=== PATIENT | male | born 1950 | race Caucasian/White ===

== ENCOUNTER 2017-06-14 12:22 | Inpatient (IN) ==
[2017-06-14 13:34] LABS: MANUAL DIFF NEEDED? NO
[2017-06-14 13:46] LABS: BASO% 0.7 % (0.0-0.8); EOS# 0.07 X1000 (0.0-0.7); EOS% 0.7 % (0.0-10.0); HEMATOCRIT 45.5 % (42.0-52.0); HEMOGLOBIN 15.6 g/dL (14.0-18.0); IMM GRAN# 0.03 X1000 (0.0-0.04); IMM GRAN% 0.3 % (0.0-0.5); LYMPH# 2.52 X1000 (1.2-3.4); LYMPH% 23.7 % (20.5-51.1); MCH 30.9 PG (27-31); MCHC 34.3 g/dL (33-37); MCV 90.1 FL (81-99); MONO# 0.79 X1000 (0.11-0.59); MONO% 7.4 % (1.7-9.3); MPV 11.3 FL (7.4-10.4); NEUT% 67.2 % (42.2-75.2); PLT 328 X1000 (130-400); RBC 5.05 XMIL (4.7-6.1)
[2017-06-14 13:55] LABS: INR 1.03; PROTIME 10.8 Seconds (9.2-11.7); PTT 30.3 Seconds (22.0-36.0)
[2017-06-14 14:04] LABS: AGAP 15; ALBUMIN 4.2 g/dL (3.5-5.0); ALKALINE PHOSPHATASE 91 U/L (32-122); BUN 13 mg/dL (8-22); CHLORIDE 101 mmol/L (98-107); CK PROFILE 116 U/L (24-204); COSMO 282; GOT 15 U/L (10-34); GPT 13 U/L (10-44); POTASSIUM 3.6 mmol/L (3.5-5.1); SODIUM 140 mmol/L (136-145); TCO2 24 mmol/L (25-35); TOTAL BILIRUBIN 0.61 mg/dL (0.20-1.00); TOTAL PROTEIN 7.7 g/dL (6.3-8.3)
--- NOTE | 2017-06-14 14:48 | Diag Imaging Result Doc PS360 ---
CT HEAD W/O CONTRAST - 06/14/2017 INDICATION: AMS TECHNIQUE: A CT dose reduction protocol was used. COMPARISON: None FINDINGS: The ventricles and sulci are normal in size and contour. 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 No intracranial mass or hemorrhage. The skull is intact. The sinuses, mastoids, and middle ears are clear. IMPRESSION: No acute disease. Electronically signed by Jimmy Flores 06/14/2017 2:46 PM
--- NOTE | 2017-06-14 14:53 | Diag Imaging Result Doc PS360 ---
CHEST-PORTABLE - 06/14/2017 INDICATION: AMS TECHNIQUE: COMPARISON: None FINDINGS: The lungs are normally expanded and clear. Heart size and mediastinal contours are normal. No pneumothorax or pleural effusion. IMPRESSION: Negative exam. Electronically signed by Jimmy Flores 06/14/2017 2:50 PM
--- NOTE | 2017-06-14 15:21 | EKG Report ---
Test Performed on : 06/14/2017 12:36:28 PM Test Reason : DIZZINESS Blood Pressure : / mmHG Vent. Rate : 087 BPM Atrial Rate : 087 BPM P-R Int : 192 ms QRS Dur : 110 ms QT Int : 404 ms P-R-T Axes : 015 -68 049 degrees QTc Int : 486 ms Sinus rhythm. with marked sinus arrhythmia. with occasional premature ventricular complexes. Left anterior fascicular block Prolonged QT Abnormal ECG No previous ECGs available Unconfirmed Result
[2017-06-14] MEDS ORDERED: LABETALOL IV ONE (15:35)
--- NOTE | 2017-06-14 15:36 | ED EKG INTERP ---
This chart was entered by Yuko Paris Scribe, acting as scribe for Haven Joy MD. EKG Interpretation - EKG Time of EKG reading by physician:: 12:36 EKG Read and Signed by:: Haven Joy EKG Interpretation (*Must complete 3 of following elements*): Abnormal Rate: 87 Rhythm: sinus rhythm with marked sinus arrhythmia with occasional PVCs Comments: left anterior fascicular block; prolonged QT Attestation - Physician/ MICH Attestation Patient care was provided by Advanced Practice Provider:: No The physician spent face to face time with patient:: Yes Advanced Practice Provider documentation review:: Supervising physician onsite and consulted in the evaluation and care of this patient. The physician did have a face to face encounter with the patient. This chart was documented by the indicated scribe, (Yuko Paris Scribe) and accurately reflects the services I performed and decisions made by me, Haven Joy MD, as attested by the provider's signature.
[2017-06-14] MEDS ORDERED: NS 50 ML ONE (15:46)
[2017-06-14 16:56] LABS: URINE CULTURE NEEDED? NO; URINE MICRO REVIEW NEEDED? NO; URINE SOURCE CLEAN CATCH
[2017-06-14 17:00] LABS: BILIRUBIN URINE NEGATIVE (NEGATIVE); BLOOD URINE NEGATIVE (NEGATIVE); COLOR YELLOW; GLUCOSE URINE NEGATIVE (NEGATIVE); LEUKOCYTES URINE NEGATIVE (NEGATIVE); NITRITE URINE NEGATIVE (NEGATIVE); PROTEIN URINE NEGATIVE (NEGATIVE); SP GRAVITY URINE 1.006; TURBIDITY URINE CLEAR (CLEAR); UR EPITHELIAL CELLS <10 /HPF (<10); URINE BACTERIA NEGATIVE /HPF; URINE RBC <10 /HPF (<10); URINE WBC <10 /HPF (<10); UROBILINOGEN URINE NORMAL (NORMAL)
[2017-06-14 17:12] LABS: UR AMPHETAMINES QUAL NONE DETECTED (NONE DETECT); UR BARBITUATES QUAL NONE DETECTED (NONE DETECT); UR BENZODIAZEPIN QUAL NONE DETECTED (NONE DETECT); UR CANNABINOIDS QUAL NONE DETECTED (NONE DETECT); UR COCAINE QUAL NONE DETECTED (NONE DETECT); UR METHADONE QUAL NONE DETECTED (NONE DETECT); UR OPIATES QUAL NONE DETECTED (NONE DETECT); UR OXYCODONE QUAL NONE DETECTED (NONE DETECT); UR PCP QUAL NONE DETECTED (NONE DETECT)
--- NOTE | 2017-06-14 17:36 | ED EKG INTERP ---
This chart was entered by Yuko Paris Scribe, acting as scribe for Haven Joy MD. EKG Interpretation - EKG Time of EKG reading by physician:: 16:36 EKG Read and Signed by:: Haven Joy EKG Interpretation (*Must complete 3 of following elements*): Abnormal ( pulmonary disease pattern left anterior fascicular block Junctional ST depression, probably normal) Rate: 70 Rhythm: normal sinus rhythm Attestation - Physician/ MICH Attestation Patient care was provided by Advanced Practice Provider:: No The physician spent face to face time with patient:: Yes Advanced Practice Provider documentation review:: Supervising physician onsite and consulted in the evaluation and care of this patient. The physician did have a face to face encounter with the patient. This chart was documented by the indicated scribe, (Yuko Paris Scribe) and accurately reflects the services I performed and decisions made by me, Haven Joy MD, as attested by the provider's signature.
--- NOTE | 2017-06-14 22:22 | PROVIDER DOCUMENTATION ---
This chart was entered by Yuko Paris Scribe, acting as scribe for Jose Manuel Perales DO. HPI-Syncope/Dizziness - General Chief Complaint: Dizziness Stated Complaint: fall/ dizzy x6 months Time Seen by Provider: 06/14/17 14:30 Source: patient Allergies/Adverse Reactions: Patient Allergies Allergy/AdvReac Type Severity Reaction Status Date / Time No Known Allergies Allergy Verified 06/14/17 15:42 Home Medications: Home Medication List Medication Instructions Recorded Confirmed Last Taken Type NK [No Home Medications] 06/14/17 06/14/17 Unknown History - History of Present Illness-Syncope/Dizzy Nature of Presenting Problem: Patient is a 66 year old male who presents in the ED with complaints of dizziness. He states he had a sudden onset of dizziness while shopping in a store today, and states he was able to sit down before falling. He also states he has a history of frequent falls due to dizziness, but states he has not seen a physician in 15 years. He reports he has lost forty pounds in the last year, and reports he smokes one pack per day. He denies chest pain, dyspnea, palpitations, nausea/vomiting, and any other symptoms. Prior Episodes: reports: recent history Onset/Duration: reports: abrupt, just prior to arrival Timing: reports: improving Position/Activity at time of episode: reports: standing Symptoms prior to episode: reports: lightheaded (dizziness) Context: reports: felt faint, other (dizziness) Loss of Consciousness: no loss of consciousness Location of injury. (If syncope resulted in an injury.): reports: none Current Symptoms: reports: none/feels normal Similar symptoms previously: denies: previous diagnosis, tests, workup for same problem Recently Seen Here or By Another Healthcare Provider: No - Dizziness Severity in ED: reports: mild, moderate Dizziness Related Current/Associated Symptoms: reports: none/feels normal Any recent trauma/injury?: reports: none Modifying Factors: improves with: nothing Patient usually:: reports: walks without assistance Review of Systems - Adult - REVIEW OF SYSTEMS - ADULT Constitutional: reports: no symptoms reported Eyes: reports: no symptoms reported Ears, Nose, Mouth & Throat: reports: no symptoms reported Cardiovascular: reports: no symptoms reported. denies: chest pain, palpitations Respiratory: reports: no symptoms reported. denies: shortness of breath Gastrointestinal: reports: no symptoms reported. denies: nausea, vomiting Genitourinary: reports: no symptoms reported Musculoskeletal: reports: no symptoms reported Integumentary: reports: no symptoms reported Neurological: reports: see HPI, dizziness/vertigo Psychiatric: reports: no symptoms reported Endocrine: reports: no symptoms reported Hematologic/Lymphatic: reports: no symptoms reported Allergic/Immunologic: reports: no symptoms reported All Other Systems: Reviewed and Negative Past History - Adult - PAST MEDICAL HISTORY-ADULT Review of Records: reports: Nursing Assessment Review, Medications Reviewed Major Childhood Illnesses: reports: denies history Cardiovascular: reports: denies history Respiratory: reports: denies history Gastrointestinal: reports: denies history Obstetrical/Gynecological: reports: denies history Genitourinary: reports: denies history Musculoskeletal: reports: denies history Neurological: reports: denies history Endocrine/Immune: reports: denies history Other Conditions: reports: denies history - PRIOR SURGERIES/PROCEDURES Surgical/Procedure History: reports: appendectomy - IMMUNIZATION STATUS Childhood Immunizations: See Nurse Assessment Flu Vaccine: See Nurse Assessment - FAMILY HISTORY Family History: reviewed, not pertinent - SOCIAL HISTORY Smoking: cigarettes, less than 1 pack/day Substance Use: none/never Alcohol Use Frequency: never Living Situation: family Physical Exam-General - PHYSICAL EXAM-ADULT Initial Vital Signs Reviewed: Yes (hypertensive) - CONSTITUTIONAL General Appearance: alert, no apparent distress - EYES Eyes: PERRL/EOMI, pink conjunctivae - HEAD, EARS, NOSE, MOUTH & THROAT HENMT: normocephalic/atraumatic, moist mucous membranes - NECK Neck: non-tender, full range of motion, supple, normal inspection - RESPIRATORY Respiratory: chest non-tender, lungs clear, normal breath sounds, no pleuratic chest pain, no respiratory distress, no accessory muscle use - CARDIOVASCULAR Cardiovascular: normal peripheral pulses, no edema, no gallop, no JVD, no murmur , tachycardia - GASTROINTESTINAL (ABDOMEN) Abdominal Exam: non tender, soft, no organomegaly, no pulsatile mass - LYMPHATIC Lymphatic: no adenopathy - MUSCULOSKELETAL Back Exam: normal inspection, no CVA tenderness, no vertebral tenderness Extremity: normal range of motion, non-tender, normal gait, normal inspection, no pedal edema, no calf tenderness, normal capillary refill, pelvis stable - SKIN Integumentary: normal color, normal turgor, warm/dry - NEUROLOGIC Neurologic: grossly normal, no motor/sensory deficits - PSYCHIATRIC Psych/Mental Status: normal mood/affect, oriented x 3 Progress - PLAN OF CARE/RESULTS Progress/Plan/Lab Results: Vital Signs - 8 hr 06/14/17 15:18 06/14/17 15:45 06/14/17 15:55 Temperature Pulse Rate 99 H 108 H 96 H Respiratory Rate 14 20 18 Blood Pressure 215/140 210/132 204/108 O2 Sat by Pulse Oximetry 98 98 98 06/14/17 16:10 06/14/17 17:12 06/14/17 19:30 Temperature Pulse Rate 86 80 91 H Respiratory Rate 20 20 17 Blood Pressure 168/100 183/88 174/104 O2 Sat by Pulse Oximetry 98 100 95 06/14/17 20:28 Temperature 98.7 F Pulse Rate 89 Respiratory Rate 12 Blood Pressure 171/86 O2 Sat by Pulse Oximetry 96 Laboratory Results - last 24 hr 06/14/17 06/14/17 06/14/17 12:37 12:37 12:37 WBC 10.63 RBC 5.05 Hgb 15.6 Hct 45.5 MCV 90.1 MCH 30.9 MCHC 34.3 RDW Std Deviation 13.6 Plt Count 328 MPV 11.3 H Immature Gran % (Auto) 0.3 Neut % (Auto) 67.2 Lymph % (Auto) 23.7 [place] % (Auto) 7.4 Eos % (Auto) 0.7 Baso % (Auto) 0.7 Immature Gran # (Auto) 0.03 Neut # (Auto) 7.15 H Lymph # (Auto) 2.52 [place] # (Auto) 0.79 H Eos # (Auto) 0.07 Baso # (Auto) 0.07 PT INR PTT (Actin FS) D-Dimer 0.51 H Sodium 140 Potassium 3.6 Chloride 101 Carbon Dioxide 24 L Anion Gap 15 BUN 13 Creatinine 1.1 Estimated GFR/1.73 m2 > 60 BUN/Creatinine Ratio 12 Glucose 139 H POC Glucose Calculated Osmolality 282 Calcium 9.0 Magnesium 2.0 Total Bilirubin 0.61 AST 15 ALT 13 Alkaline Phosphatase 91 Creatine Kinase 116 Troponin T [id number] Pept Total Protein 7.7 Albumin 4.2 Globulin 3.5 Albumin/Globulin Ratio 1.2 Urine Source Urine Color Urine Turbidity Urine pH Ur Specific [place] Urine Protein Ur Glucose (Stick) Ur Ketones (Stick) Urine Blood Urine Nitrite Urine Bilirubin Urobilinogen Dipstick Urine Leukocytes Urine WBC (Auto) Urine RBC (Auto) U Epithel Cells (Auto) Urine Bacteria (Auto) Urine Opiates Screen Ur Oxycodone Screen Ur Methadone, Qual Ur Barbiturates Screen Ur Phencyclidine Scrn Ur Amphetamines Screen U Benzodiazepines Scrn Urine Cocaine Screen U Cannabinoids Screen 06/14/17 06/14/17 06/14/17 12:37 12:37 12:37 WBC RBC Hgb Hct MCV MCH MCHC RDW Std Deviation Plt Count MPV Immature Gran % (Auto) Neut % (Auto) Lymph % (Auto) [place] % (Auto) Eos % (Auto) Baso % (Auto) Immature Gran # (Auto) Neut # (Auto) Lymph # (Auto) [place] # (Auto) Eos # (Auto) Baso # (Auto) PT 10.8 INR 1.03 PTT (Actin FS) 30.3 D-Dimer Sodium Potassium Chloride Carbon Dioxide Anion Gap BUN Creatinine Estimated GFR/1.73 m2 BUN/Creatinine Ratio Glucose POC Glucose Calculated Osmolality Calcium Magnesium Total Bilirubin AST ALT Alkaline Phosphatase Creatine Kinase Troponin T < 0.010 [id number]-[id number] Pept 663 H Total Protein Albumin Globulin Albumin/Globulin Ratio Urine Source Urine Color Urine Turbidity Urine pH Ur Specific [place] Urine Protein Ur Glucose (Stick) Ur Ketones (Stick) Urine Blood Urine Nitrite Urine Bilirubin Urobilinogen Dipstick Urine Leukocytes Urine WBC (Auto) Urine RBC (Auto) U Epithel Cells (Auto) Urine Bacteria (Auto) Urine Opiates Screen Ur Oxycodone Screen Ur Methadone, Qual Ur Barbiturates Screen Ur Phencyclidine Scrn Ur Amphetamines Screen U Benzodiazepines Scrn Urine Cocaine Screen U Cannabinoids Screen 06/14/17 06/14/17 06/14/17 13:15 16:43 16:43 WBC RBC Hgb Hct MCV MCH MCHC RDW Std Deviation Plt Count MPV Immature Gran % (Auto) Neut % (Auto) Lymph % (Auto) [place] % (Auto) Eos % (Auto) Baso % (Auto) Immature Gran # (Auto) Neut # (Auto) Lymph # (Auto) [place] # (Auto) Eos # (Auto) Baso # (Auto) PT INR PTT (Actin FS) D-Dimer Sodium Potassium Chloride Carbon Dioxide Anion Gap BUN Creatinine Estimated GFR/1.73 m2 BUN/Creatinine Ratio Glucose POC Glucose 135 H Calculated Osmolality Calcium Magnesium Total Bilirubin AST ALT Alkaline Phosphatase Creatine Kinase Troponin T [id number] Pept Total Protein Albumin Globulin Albumin/Globulin Ratio Urine Source CLEAN CATCH Urine Color YELLOW Urine Turbidity CLEAR Urine pH 7.0 Ur Specific [place] 1.006 Urine Protein NEGATIVE Ur Glucose (Stick) NEGATIVE Ur Ketones (Stick) 10 A Urine Blood NEGATIVE Urine Nitrite NEGATIVE Urine Bilirubin NEGATIVE Urobilinogen Dipstick NORMAL Urine Leukocytes NEGATIVE Urine WBC (Auto) <10 Urine RBC (Auto) <10 U Epithel Cells (Auto) <10 Urine Bacteria (Auto) NEGATIVE Urine Opiates Screen NONE DETECTED Ur Oxycodone Screen NONE DETECTED Ur Methadone, Qual NONE DETECTED Ur Barbiturates Screen NONE DETECTED Ur Phencyclidine Scrn NONE DETECTED Ur Amphetamines Screen NONE DETECTED U Benzodiazepines Scrn NONE DETECTED Urine Cocaine Screen NONE DETECTED U Cannabinoids Screen NONE DETECTED Orders Category Date Time Status Admit - [facility] Routine AdmDCTranf 06/14/17 22:05 Ordered Neurological Check q4h Care 06/14/17 22:05 Active Vital Signs Order Q 4-HR ASSESS Care 06/14/17 22:05 Active Z-Document. for Tele Applied ORDERED Care 06/14/17 22:05 Active Heart Healthy Diet Diet 06/14/17 17:03 Active CHEST-PORTABLE [RAD] Stat Exams 06/14/17 14:[address] HEAD W/O CONTRAST [CT] Stat Exams 06/14/17 14:18 Completed CBC WITH ELECTRONIC DIFF [HEME] Stat Lab 06/14/17 12:37 Completed CK PROFILE [SP CHEM] Stat Lab 06/14/17 12:37 Completed COMPREHENSIVE METABOLIC PANEL [CHEM] Stat Lab 06/14/17 12:37 Completed D-DIMER [CHEM] Stat Lab 06/14/17 12:37 Completed MAGNESIUM [CHEM] Stat Lab 06/14/17 12:37 Completed PRO B-NATRIURETIC PEPTIDE Stat Lab 06/14/17 12:37 Completed PROTIME WITH INR [COAG] Stat Lab 06/14/17 12:37 Completed PTT [COAG] Stat Lab 06/14/17 12:37 Completed TROPONIN T Stat Lab 06/14/17 12:37 Completed UA NIMS W/REFLEX CULT [URINALYSIS] Stat Lab 06/14/17 16:43 Completed UDS [URINE DRUG SCREEN] Stat Lab 06/14/17 16:43 Completed 0.9% Sodium Chloride Inj [Ns] 50 ml Med 06/14/17 15:46 Discontinued .ROUTE As Directed Labetalol Med 06/14/17 15:35 Discontinued 20 mg IV NOW ONE Oxygen Device Routine Oth 06/14/17 22:05 Active Telemetry [OM.EQ] Routine Oth 06/14/17 22:05 Active EKG [EKG] Stat Ther 06/14/17 12:36 Draft Transfer/Admit Order [TRANSFER] Routine Transfer 06/14/17 19:58 Completed Spoke with hospitalist and patient was accepted for admission Result Diagrams: 06/14/17 12:37 06/14/17 12:37 Departure - Departure Date of Disposition Decision: 06/14/17 Time of Disposition Decision: 22:18 DIAGNOSIS: Hypertensive urgency Disposition: ADMITTED INPATIENT 09 Certified Medical Emergency: Emergent Condition: Stable - Critical Care Note This patient required my direct & personal management of CC.: No Attestation - Physician/ MICH Attestation Patient care was provided by Advanced Practice Provider:: No The physician spent face to face time with patient:: Yes Advanced Practice Provider documentation review:: Supervising physician onsite and consulted in the evaluation and care of this patient. The physician did have a face to face encounter with the patient. This chart was documented by the indicated scribe, (Yuko Paris Scribe) and accurately reflects the services I performed and decisions made by me, Jose Manuel Perales DO, as attested by the provider's signature.
[2017-06-14] MEDS ORDERED: TYLENOL PO PRN (23:04)
[2017-06-14] MEDS: LOVENOX SUBQ SCH (23:58)
[2017-06-15] MEDS ORDERED: NORVASC PO ONE (00:26)
--- NOTE | 2017-06-15 05:25 | EKG Report ---
Test Performed on : 06/14/2017 4:36:09 PM Test Reason : No Order in [employer] Blood Pressure : / mmHG Vent. Rate : 070 BPM Atrial Rate : 070 BPM P-R Int : 194 ms QRS Dur : 096 ms QT Int : 432 ms P-R-T Axes : 000 -67 042 degrees QTc Int : 466 ms Normal sinus rhythm. Pulmonary disease pattern Left anterior fascicular block Junctional ST depression, probably normal Abnormal ECG When compared with ECG of 14-JUN-2017 12:36, (Unconfirmed) premature ventricular complexes. are no longer present Unconfirmed Result
[2017-06-15 05:38] LABS: MANUAL DIFF NEEDED? NO
[2017-06-15 05:47] LABS: BASO% 0.7 % (0.0-0.8); EOS# 0.25 X1000 (0.0-0.7); EOS% 2.1 % (0.0-10.0); HEMATOCRIT 41.4 % (42.0-52.0); HEMOGLOBIN 14.3 g/dL (14.0-18.0); IMM GRAN# 0.03 X1000 (0.0-0.04); IMM GRAN% 0.3 % (0.0-0.5); LYMPH# 3.09 X1000 (1.2-3.4); LYMPH% 26.3 % (20.5-51.1); MCH 31.5 PG (27-31); MCHC 34.5 g/dL (33-37); MCV 91.2 FL (81-99); MONO# 1.45 X1000 (0.11-0.59); MONO% 12.4 % (1.7-9.3); NEUT% 58.2 % (42.2-75.2); PLT 303 X1000 (130-400); RBC 4.54 XMIL (4.7-6.1)
[2017-06-15 06:11] LABS: HEMOGLOBIN A1C 6.6 % (4.8-6.0)
[2017-06-15 06:15] LABS: AGAP 13; BUN 17 mg/dL (8-22); CALCIUM 9.1 mg/dL (8.8-10.2); CHLORIDE 104 mmol/L (98-107); COSMO 288; MAGNESIUM 2.2 mg/dL (1.5-2.7); POTASSIUM 3.5 mmol/L (3.5-5.1); SODIUM 143 mmol/L (136-145); TCO2 26 mmol/L (25-35)
--- NOTE | 2017-06-15 06:26 | EKG Report ---
Test Performed on : 06/15/2017 05:58:24 AM Test Reason : Near Syncope Blood Pressure : / mmHG Vent. Rate : 063 BPM Atrial Rate : 063 BPM P-R Int : 208 ms QRS Dur : 114 ms QT Int : 458 ms P-R-T Axes : 047 -64 033 degrees QTc Int : 468 ms Sinus rhythm. with occasional premature ventricular complexes. Left anterior fascicular block Abnormal ECG When compared with ECG of 14-JUN-2017 16:36, (Unconfirmed) premature ventricular complexes. are now present ST no longer depressed in Anterior leads Confirmed by Hema Vyas MD ([id number]) on 06/17/2017 1:21:15 PM
--- NOTE | 2017-06-15 10:00 | HISTORY AND PHYSICAL ---
TIME SEEN: 2030 hours. CHIEF COMPLAINT: Near syncope. HISTORY OF PRESENT ILLNESS: Mr. Chase is a 66-year-old, male, who presented to the ER today at 1225 hours after experiencing a near syncopal episode just prior to arrival. The patient states that he was at the grocery store and became dizzy and almost passed out. He states that over the past 6 months he has had several syncopal episodes, for which he became dizzy, passed out and has even fallen and hit his head and injured himself previously. The patient reports that he did not present to a doctor or the ER for evaluation with his previous episodes. He denies any previous known history of CVA, seizures or cardiac problems. The patient denies any known medical problems. He reports that he has not seen a doctor in 15 years. He denies any headache, chest pain, palpitations or shortness of breath. He does report that for several years now he has had increased problems with some sensory loss and numbness in his bilateral extremities. He also states that he has had some numbness in his face as well, although denied this worsening recently or today with this episode. He reports that recently he had some pain in his back that was associated with a rash, although this has since subsided, although he states the pain is still there. The patient reports that he thought he had shingles. He had been taking some over-the- counter aspirin up to 2-3 tablets a day as needed for pain. He also reports that he frequently has problems with constipation and does occasionally use [id number] mineral oil and milk of magnesia. He stated that his last bowel movement was this morning; the one prior to this was yesterday. He denies any hematochezia or melena. He does report some rectal pain over the past 2- 3 months. He did report that he does have a previous history of having hemorrhoids as well, although upon examination in the ER the patient declined having a rectal exam performed at this time. Upon evaluation in the ER, the patient's CT of the head was negative for any acute intracranial abnormality. There was mention of some chronic microvascular disease, as well as an old lacunar infarct in the left internal capsule. His chest x-ray was negative. EKG showed sinus rhythm with a sinus arrhythmia and occasional PVCs. Cardiac enzymes are negative at this time. He did have elevated blood pressure upon arrival with his blood pressure reaching 215/140. At one point in the ER he was given 20 mg of labetalol which did improve this. At this time the patient will be admitted for further treatment and evaluation of his syncope. REVIEW OF SYSTEMS: A 12 point review of systems was conducted with the patient. All were negative, except for pertinent positives mentioned in the above HPI. PAST MEDICAL HISTORY: The patient denies any known past medical problems. PAST SURGICAL HISTORY: Appendectomy. SOCIAL HISTORY: The patient is a current half pack per day smoker. He states that over the past 10 years that he has reduced his daily uses down from 2 packs per day to this, although has smoked since age 16. He also did have a period from approximately 10 years in his 30s and 40s for which he used alcohol daily, although he denies any current alcohol use. He denies any current illicit drug use, although he did report in the past he has abused marijuana and cocaine. 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 FAMILY MEDICAL HISTORY: The patient states that his father was a drinker and a smoker. Other than this, he does not know his medical history. He reports that his mother had a history of metastatic breast cancer and at age 67. He reports that he has 3 siblings, although does not know their medical history either. ALLERGIES: Patient reports no known allergies. HOME MEDICATIONS: Patient denies any prescription medications. DIAGNOSTIC DATA/LABORATORY RESULTS: White blood cell count 10.63, hemoglobin 15.6, hematocrit 45.5, platelet count is 328. PT 10.8, INR 1.03, PTT is 30.3, D-dimer 0.51. Sodium 140, potassium 3.6, chloride 101, bicarbonate 24, BUN 13, creatinine 1.1, glucose 139, calcium 9, magnesium 2. Liver function tests are within normal limits. CK 116. Troponin less than 0.01. ProBNP is 663. Urinalysis was positive for ketones, but was otherwise within normal limits. Urine drug screen was negative. EKG showed sinus rhythm with a sinus arrhythmia and occasional PVCs with a prolonged QT at a rate of 87 with a QTc of 486. CT of the head noncontrast showed some scattered mild subcortical white matter hypodensities compatible with chronic microvascular disease, as well as an old lacunar infarct in the left internal capsule, although no intracranial mass or hemorrhage. This is per Radiology. Chest x-ray shows no acute disease. This is per Radiology. PHYSICAL EXAMINATION: VITAL SIGNS: Temperature 98.7 degrees, heart rate 89, respirations 12, blood pressure 171/86, oxygen saturation is 96% on room air. GENERAL: Mr. Chase is a pleasant, 66-year-old male, who is resting comfortably on the ER stretcher. He was in no acute distress. He was awake, alert and able to answer all questions appropriately. HEENT: Head is atraumatic, normocephalic. Pupils are equal, round, reactive to light, 3 mm bilaterally and brisk. EOMS were intact. Oral mucosa is moist. Oropharynx is clear. NECK: Supple. Trachea midline. CARDIOVASCULAR: Patient has normal S1, S2. No murmurs, gallops, rubs appreciated with a regular rate, although irregular rhythm. PULMONARY: Patient has symmetrical chest expansion bilaterally. Lung sounds are clear to auscultation bilateral full marie. ABDOMEN: Soft, nontender, nondistended. Bowel sounds were present in all 4 quadrants and normoactive. EXTREMITIES: No cyanosis, clubbing, or edema noted. Pulse, motor and sensory were intact in all extremities. Pedal pulses were 2+ bilaterally. INTEGUMENTARY: The patient's skin is pink, warm, dry and intact. No lesions or sores noted. NEUROLOGICAL: Patient is alert and oriented x4. Cranial nerves 2-12 are grossly intact. No facial droop noted. Patient has equal hand grasps and muscle strength bilaterally. No arm drift noted as well. ASSESSMENT AND PLAN: 1. Near syncope. For further evaluation of this, we have ordered for the patient to have an echocardiogram in the morning, as well as repeat cardiac enzymes and repeat electrocardiogram. We have placed a cardiology consult as well. The patient is not having any acute neurological deficits at this time, although we will continue to monitor this closely with every 4 hour neuro checks. We will continue to rule him out for possible neurological complications given his symptoms, as well as mention of old lacunar infarct on his computed tomography. We have also placed orders for lipid profile to be performed in the morning and we will continue to follow. 2. Hyperglycemia. The patient has no previous history of diabetes. We will continue to monitor this. We have placed an order for hemoglobin A1c. We will continue to follow. 3. Hypertension. The patient does not previously take any medications for this. We will go ahead and place him on Norvasc 5 mg oral daily. We will continue to monitor. 4. Nicotine dependence. We will continue to employment counselor the patient during his inpatient status and upon discharge the importance of smoking cessation. 5. Deep vein thrombosis prophylaxis. Will place him on Lovenox 40 mg subcutaneously every 24 hours. 6. Elevate D-dimer. At this time, except for elevated blood pressure, the patient's vital signs are within normal limits. He denies any chest pain or shortness of breath and according to Wells criteria for pulmonary embolism and deep vein thrombosis, there is a low probability that the patient has either of these. The patient will be placed on the medical floor with telemetry. Vital signs q. 4 hours. He will be on a heart healthy diet, although n.p.o. after midnight for a lipid profile in the morning. Further orders and recommendations pending hospital course, diagnostic studies, and physician evaluation. Dictated by SILVINA Cherry for Tonio Bradshaw MD cc: Tonio Bradshaw MD I have seen and examined patient. I have provided face to face evaluation. I have also reviewed patient labs, EKG and imagine studies. Patient presents with Syncopal episode. EKG abnormal. Will pursue cardiac work up. Patient has has severe uncontrolled HTN. Will continue with the plan outline above. VISHAL MANUEL
--- NOTE | 2017-06-15 12:20 | CONSULTATION ---
DATE OF CONSULTATION: 06/15/2017 INDICATION: Syncope. HISTORY OF PRESENT ILLNESS: Mr. Chase is a 66-year-old white male with a history of multiple near syncopal episodes happening relatively frequently over the last 6 months with the most recent episode occurring yesterday. This occurred in the grocery store. He became very dizzy and apparently almost passed out and had to go to the ground. Around 2 weeks ago he thinks he had an episode where he actually did pass out and suffered a lot of abrasions to his shoulder area. He has no preceding chest pain or poor heart racing with these episodes. He has no medical history that he is aware of although he reports no contact with the medical community for some time now. He has a history of smoking and has done so for many years. In addition, he had a history of illicit drug use in the form of marijuana and cocaine in the past. No current primary care provider. PAST HISTORY: None by virtue of lack of contact with the medical community. SOCIAL HISTORY: A smoker as detailed above. No current alcohol use. 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 Previous illicit drug use as detailed. FAMILY HISTORY: Father was a drinker and a smoker, otherwise no known medical history that he is aware of. Mother had a history of metastatic breast cancer and at 67. He is not aware of any medical history in his 3 siblings. REVIEW OF SYSTEMS: A 10-system review of systems is negative except for those things mentioned in HPI. PHYSICAL EXAMINATION: This hospitalization he has been afebrile. His heart rates have been anywhere from the 60s to 90s. His blood pressure is 152/55. His presenting blood pressure was 173/100 and then went into the 200s. Generally he is in no acute distress. HEENT: Oropharynx is moist. Poor dentition. Eye examination shows pink conjunctivae and white sclerae. Neck examination shows no obvious thyromegaly or thyroid tenderness. Cardiovascular: He is in a regular rate and rhythm. He has no obvious murmurs. He has no S3. He has no lower extremity edema. He does have a left-sided carotid bruit with no obvious bruit heard on the right side. Chest: Clear bilaterally. He has no increased work of breathing. Abdomen: Soft, nontender, nondistended. He has no obvious organomegaly. Skin Exam: Warm and dry throughout any rashes. Neurological: He is moving all extremities well. Cranial nerves 2-12 are intact without any sensation deficits. Psychiatric: He is alert, oriented, pleasant. He has normal mood and affect. PERTINENT DATA: CT of the head without contrast showed no acute findings. His chest x-ray was unremarkable. He had multiple EKGs, initial one being at 12:36 yesterday. This showed sinus rhythm with PVCs and what appears to be PACs. His subsequent EKG occurring yesterday at 16:36 shows sinus rhythm. Final EKG occurring today at 5:58 shows sinus rhythm with PVC. Laboratory data: White count of 11.7, his hematocrit is 41, his platelet count is 303,000. Sodium is 143, potassium 3.5, BUN 17, creatinine 1.2, magnesium level is 2.2. His cardiac enzymes are negative. His proBNP is 63. His LDL was 118, HDL 27. ASSESSMENT: Syncopal episode. PLAN: He has a severe right-sided carotid lesion that is possibly occluded with a 60-79% lesion on the left. We will obtain CT angiograms of the head and neck to further evaluate. I will evaluate with myocardial perfusion imaging as well. His echo is pending. His laboratory data has been unremarkable for the time being for any acute cause of his episode. He will need continued heart rate monitoring as his telemetry currently shows multiple PACs. No significant AV block has been undiagnosed. Possible Wenckebach has been seen, but no higher degree of AV block. We will continue to follow for now. cc: Samir Morillo MD
--- NOTE | 2017-06-15 12:50 | Diag Imaging Result Doc PS360 ---
EXAM: CT ANGIOGRAM/HEAD AND NECK HISTORY: syncope, severe bilat carotid disease TECHNIQUE: Dose reduction protocol 1. CT angiogram head with contrast. MIP images obtained. 2. CT angiogram neck with contrast. MIP images obtained. COMPARISON: None. FINDINGS: CT angiogram head: There is normal flow within each middle cerebral artery and each anterior cerebral artery. No focal stenosis. No aneurysm. Normal flow in each posterior cerebral artery. No stenosis or aneurysm. CT angiogram neck: There is normal flow within each common carotid artery. There is intimal thickening in each distal common carotid artery resulting in mild narrowing of less than 50%. No calcified plaque. Noncalcified plaque within the left bulb resulting in narrowing of approximately 50%. No other abnormality to the left internal carotid artery. There is complete occlusion to the right internal carotid artery at the bulb. Flow is present within each vertebral artery. The right vertebral artery is larger than the left. IMPRESSION: 1. No occlusion, prominent stenosis, or aneurysm in the [place]low[place] dee-ni' of Drew 2. Complete occlusion to the right internal carotid artery. Electronically signed by Hilton Hull 06/15/2017 12:47 PM
[2017-06-15] MEDS: ASPIRIN PO SCH (16:45)
[2017-06-15] MEDS: NS 1,000 ML IV SCH (16:46)
[2017-06-15] MEDS: PRINIVIL PO SCH (16:46)
[2017-06-15] MEDS: HUMULIN R SUBQ SCH (20:53)
[2017-06-15] MEDS: LOVENOX SUBQ SCH ×2 (20:54→23:18)
[2017-06-15] MEDS: LIPITOR PO SCH (20:54)
--- NOTE | 2017-06-15 21:46 | PROGRESS NOTE ---
DATE: 06/15/2017 SUBJECTIVE: Today Mr. Chase referred to be doing a little better. He has not had anymore of the dizziness or blackout spells. Mr. Chase refers to have been having these episodes of instantly blacking out every now and then for a while. OBJECTIVE: Vital signs: Blood pressure is 173/122, pulse of 120, respiration is 18, temperature is 98.2 degrees. General examination: Mr. Chase is a 66-year-old, male. He is in bed. He is not in any distress. Mucosa is slightly dry. Anicteric. Acyanotic. Neck: Supple. Chest: Good air entry bilaterally. No crepitations. No rhonchi. Cardiovascular: Regular rate and rhythm. There are no murmurs, no rubs, no gallops. There are occasional extra systolic beats. Abdomen: Soft. Extremities: No pedal edema. Central Nervous System: Patient is awake, alert and oriented. There is no focal neurological deficit. LABORATORY DATA: Has been reviewed. WBC is 11.74, hemoglobin is 14.3, platelet count is 303,000. Chemistry is also reviewed and completely unremarkable. A1c is 6.6. Lipids have also been review. HDL is 27 which is ridiculously low. ASSESSMENT: 1. Recurrent syncopal episodes. I think patient probably has underlying cardiac arrhythmias or a cardiac pathology that predisposes him to that. His EKG shows PVCs. We will have to continue monitoring his telemonitor to see if there is any paroxysmal fast rhythm that gives him syncope. 2. Severe uncontrolled hypertension. Patient probably has already developed hypertensive cardiomyopathy. We would continue with the current blood pressure medication for control. 3. Diabetes mellitus. A1c is 6.6. The patient complained of some numbness in his lower extremities for some time. I think he has probably been diabetic for a while and has just not been treated. We will some start him on a sliding scale at least for now. Hopefully at the time of discharge we can transition this to some oral medications. 4. Tobacco abuse. Patient has been counseled. 5. Dyslipidemia. We are going to start the patient on atorvastatin. 6. Bilateral carotid artery disease. The patient has completely occluded right internal carotid artery, the left has about 50% and also narrowing. His [place] of Drew was unremarkable. I think patient is probably very vasculopathic. We will start him on aspirin 325 daily, statin medications and go from there. In general, I think Mr. Chase is relatively stable. We are going to get better blood pressure control. He looks dry so we will hydrate him with normal saline at 85 mL/h. We will start him on aspirin, statin and blood pressure control. He has done a stress test. We are pending the report and then go from there. We will also continue monitoring his heart under the environmental monitoring technician and if it is unremarkable I think he will need probably a 30 day heart monitoring to make sure that we catch any paroxysmal arrhythmia that comes. cc: Tonio Bradshaw MD MTDD
[2017-06-16] MEDS: NS 1,000 ML IV SCH ×2 (03:58→18:35)
[2017-06-16 05:28] LABS: MANUAL DIFF NEEDED? NO
[2017-06-16 05:37] LABS: BASO% 0.8 % (0.0-0.8); EOS% 3.3 % (0.0-10.0); HEMATOCRIT 39.7 % (42.0-52.0); HEMOGLOBIN 13.6 g/dL (14.0-18.0); LYMPH% 26.2 % (20.5-51.1); MCH 31.1 PG (27-31); MCHC 34.3 g/dL (33-37); MCV 90.8 FL (81-99); MONO# 0.95 X1000 (0.11-0.59); MONO% 10.4 % (1.7-9.3); MPV 11.5 FL (7.4-10.4); NEUT% 59.3 % (42.2-75.2); PLT 284 X1000 (130-400); RBC 4.37 XMIL (4.7-6.1)
[2017-06-16] MEDS: HUMULIN R SUBQ SCH ×4 (06:06→20:56)
[2017-06-16 06:07] LABS: AGAP 10; BUN 14 mg/dL (8-22); CALCIUM 8.8 mg/dL (8.8-10.2); CHLORIDE 107 mmol/L (98-107); COSMO 286; POTASSIUM 3.5 mmol/L (3.5-5.1); SODIUM 143 mmol/L (136-145); TCO2 26 mmol/L (25-35)
[2017-06-16] MEDS: PRINIVIL PO SCH (08:26)
[2017-06-16] MEDS: ASPIRIN PO SCH (08:26)
[2017-06-16] MEDS ORDERED: NORVASC PO SCH (09:00)
--- NOTE | 2017-06-16 12:42 | ECHO REPORT ---
ORDER DATE: 06/15/2017 MEASUREMENTS: Left ventricular end-diastolic diameter 4.6 and systolic diameter 3.6. Septal thickness 1.9, posterior wall thickness 1.4. Left atrium 4.0, aortic root 3.4. SUMMARY: 1. Fair quality study. 2. Minimal sclerosis of trileaflet aortic valve demonstrated with normal aortic valve opening evident. Peak gradient across the aortic valve is less than 5 mmHg. Mitral, tricuspid and pulmonic valves are without structural abnormality with mild mitral regurgitation and mild tricuspid regurgitation. The estimated systolic PA pressure by Doppler is 15-20 mmHg. The aortic root is normal in size. 3. Normal left ventricular chamber size with moderate concentric left hypertrophy is demonstrated. Estimated left ventricular ejection fraction appears to be approximately 50%. No regional wall motion abnormalities are evident. Left atrium is borderline enlarged. Right atrium and right ventricle are normal in size with normal right ventricular systolic function. 4. No pericardial effusion. 5. Appearance of inferior vena cava suggests normal central venous pressure. cc: Kushal Saeed MD
[2017-06-16] MEDS: HYGROTON PO SCH (14:18)
[2017-06-16] MEDS: LOVENOX SUBQ SCH (20:58)
[2017-06-16] MEDS: LIPITOR PO SCH (20:58)
[2017-06-16] MEDS ORDERED: HYGROTON PO ONE (23:01)
--- NOTE | 2017-06-17 04:20 | PROGRESS NOTE ---
DATE: 06/16/2017 SUBJECTIVE: Today, Mr. Chaes referred to be doing a little better. He has been able to walk around the floor and did not feel any dizziness. OBJECTIVE: Vital Signs: Blood pressure is now 154/100, pulse of 89, respirations are 16, temperature 97.7 degrees. General Examination: Mr. Chase is a 66-year-old, male. He was in bed. HEENT: Mucosa is slightly dry. Anicteric and acyanotic. Neck: Supple. Chest: Clear. Cardiovascular: Regular rate and rhythm. There are occasional extrasystolic beats. No murmurs, no rubs. Abdomen: Soft. Extremities: No pedal edema. Distal pulses are present. BELT TURNER: Patient is awake and alert. There is no focal neurological deficit. Laboratory Data: WBC is 9.17, hemoglobin is 13.6, platelet count of 284,000. Chemistry is also reviewed and is unremarkable. An echocardiogram was done which shows an ejection fraction of 50%. There is no regional wall abnormality. There is moderate concentric left hypertrophic cardiomyopathy. Head and neck CT scan, which was a CTA which was done, there is a complete occlusion to the right internal carotid. ASSESSMENT: 1. Recurrent syncopal episode. Patient will continue on the child life therapist. He does have occasional premature ventricular contractions and patient is being seen by cardiology. 2. Severe uncontrolled hypertension. Blood pressure is getting better controlled. He has been started on 3 different types of antihypertensive medications. We will continue for now. 3. Tobacco abuse. Patient has been counseled. 4. Diabetes mellitus. We will start the patient on metformin. 5. Dyslipidemia. The patient is already on atorvastatin. 6. Bilateral carotid artery disease with a completely occluded right internal carotid artery. The left is about 50% narrowed. He will continue with aspirin and a statin. 7. 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 We will continue to strive for better blood pressure control. PLAN: In general, I think Mr. Chase is doing better. We will continue with the hydration, continue targeting better blood pressure control. There is a plan from a cardiology standpoint for him to get a stress test tomorrow. cc: Tonio Bradshaw MD
[2017-06-17] MEDS: HUMULIN R SUBQ SCH ×4 (06:31→20:54)
[2017-06-17] MEDS: NS 1,000 ML IV SCH (06:32)
[2017-06-17] MEDS: PRINIVIL PO SCH (09:40)
[2017-06-17] MEDS: HYGROTON PO SCH (09:41)
[2017-06-17] MEDS: ASPIRIN PO SCH (09:41)
--- NOTE | 2017-06-17 09:43 | Carotid Study ---
DATE: 06/15/2017 PROCEDURE: Carotid duplex imaging. REFERRING PHYSICIAN: Dr. Bradshaw INTERPRETING PHYSICIAN: Dr. Newman TECH: Magen INDICATIONS: Syncope. OBSERVED DATA RIGHT LEFT Brachial Blood Pressure Carotid Pulse Bruits: Carotid/Sub DIAGRAM OF ULTRASOUND IMAGING R L RIGHT INT EXT INT EXT LEFT Sabas (cm/s) Sabas (cm/s) Subclavian 93/1 Subclavian 164/0 CCA Proximal 98/7 CCA Proximal 140/47 CCA Distal 108/9 CCA Distal 199/47 Bulb 67/7 Bulb 227/47 ICA Proximal 17/1 ICA Proximal 227/59 ICA Mid 42/0 ICA Mid 166/53 ICA Distal 47/0 ICA Distal 113/29 ECA 157/23 ECA 177/31 Vertebral 167/53 A Vertebral 82/21 A ICA/CCA Ratio 0.44 ICA/CCA Ratio 1.44 % Stenosis Likely occluded versus 99% % Stenosis 60 to 79 FINDINGS: Likely occluded right internal carotid artery on this study. The left side has some intimal thickening in the proximal common carotid artery and has stenosis of 60% to 79%. There is also an incidentally found thyroid nodule on the right. Both vertebral arteries are antegrade flow. PHYSICIAN INTERPRETATION: Likely complete occlusion of the right internal carotid artery with severe stenosis on the left. Given these findings, I would recommend a CT angiography to confirm stenosis given the questionable occluded versus 99% on the right. There is an incidentally noted right thyroid nodule which I would recommend getting a dedicated thyroid ultrasound on. cc: MD Faith Whyte PA
[2017-06-17] MEDS: COREG PO SCH ×3 (09:47→20:54)
[2017-06-17] MEDS ORDERED: GLUCOPHAGE PO SCH (17:00)
--- NOTE | 2017-06-17 17:47 | PROGRESS NOTE ---
DATE: 06/17/2017 SUBJECTIVE: Today Mr. Chase referred to be doing fine. He referred that he got slightly dizzy when he got up early this morning to take a shower but he has not had any more syncope. OBJECTIVE: Vital signs: Blood pressure is 183/77, pulse of 56, respirations 18, temperature is 98.0. General: Mr. Chase is a 66-year-old male. He is in bed. Did not seem to be in any distress. HEENT: Mucosa is slightly dry. Anicteric. Acyanotic. Neck: Supple. Chest: Good air entry bilaterally. No crepitations. No rhonchi. Cardiovascular: Regular rate and rhythm. There are some occasional extrasystole beats and there are no murmurs, no rubs, and no gallops. Abdomen: Soft, nontender. Extremities: No pedal edema. CLINICAL ASSISTANT: Patient is awake, alert, and oriented. There is no focal neurological deficit. LABORATORY DATA: Has been reviewed from yesterday. There is none today. An echocardiogram which was done on presentation showed an ejection fraction of 50% with moderate concentric hypertrophic cardiomyopathy. Carotid Doppler which was read this morning shows complete occlusion of the right ICA. The left has occlusion of 60 to 79%. Upon review of patient's telemetry strips, he has been doing frequent triplet PVCs and questionable type 2 AV block. ASSESSMENT: 1. Recurrent syncopal episode at home. There is a question if this could potentially be related to underlying cardiac arrhythmias. Cardiology is on board. We will continue with cd reactor operator head. 2. Severe uncontrolled hypertension. Blood pressure continues to be high. We went up on his medications this morning. 3. Tobacco abuse. Patient has been counseled. 4. Bilateral carotid artery disease, right-sided completely occluded. Ultrasound shows about 60 to 79% of left side occlusion as well. Patient has been started on aspirin and statin. Will get vascular surgery to evaluate for the need of any possible intervention on the left. 5. 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 6. Clinical dehydration. Will continue to gently hydrate the patient. 7. Diabetes mellitus. Patient will eventually need maybe metformin. We would withhold on this since he got contrast studies in the hospital. We will for now use insulin sliding scale and Lantus if needed and transition to oral metformin when the patient is stable to go home. cc: Tonio Bradshaw MD
[2017-06-17] MEDS: LIPITOR PO SCH ×2 (19:52→20:54)
[2017-06-17] MEDS: NORVASC PO SCH ×2 (19:53→20:54)
[2017-06-17] MEDS: LOVENOX SUBQ SCH ×2 (19:53→20:54)
--- NOTE | 2017-06-17 22:37 | CONSULTATION ---
DATE OF CONSULTATION: 06/17/2017 REQUESTING PHYSICIAN: Dr. Bradshaw. REASON FOR CONSULTATION: Concerning carotid disease. HISTORY OF PRESENT ILLNESS: A 66-year-old male, who presented to the emergency department with a near syncopal episode. He apparently was at the grocery store, became dizzy, and passed out. He said he has had several episodes of this in the last 6 months. He denied any kind of medical problems initially upon presentation, but had not seen a doctor in 15 years. He denied any kind of other lateralizing symptoms. He had a CT scan in the emergency department that was negative for any endocrine intracranial abnormality, but there might be microvascular disease, and his cardiac workup is still ongoing. Cardiology is following. His blood pressure has been high, when he first came in, over 200 systolic, and over 130 diastolic. He was admitted for the syncopal episode. He did have both an ultrasound of his carotids and a CT angiography of his neck that showed complete occlusion of the right internal carotid artery. The left side on CT angiography was likely around 50% stenosis. On ultrasound, it is 60-79%. The patient is currently not having symptoms, resting comfortably in bed. He does report some tingling in his mouth, fingers, and toes, but otherwise no other medical problems. PAST MEDICAL HISTORY: 1. Recently diagnosed diabetes mellitus. 2. Recently diagnosed dyslipidemia. 3. Concentric hypertrophic cardiomyopathy, recently diagnosed. 4. Severe uncontrolled hypertension. 5. Multiple recurrent syncopal episodes. PAST SURGICAL HISTORY: Appendectomy. SOCIAL HISTORY: Current smoker. FAMILY HISTORY: Breast cancer. ALLERGIES: None. MEDICATIONS: He initially came in with no home medications. The MAR was reviewed. REVIEW OF SYSTEMS: A full 10-point review of systems obtained, negative except as specified in HPI. PHYSICAL EXAMINATION: Vital Signs: Patient is currently afebrile. His vital signs have been stable. General: No acute distress. Alert and oriented male, looks stated age. HEENT: Normocephalic, atraumatic. Pupils equal, round, and reactive to light. Mucous membranes moist. Oropharynx benign. Intrinsic muscles of the face intact. Neck: Supple. Trachea midline. Cardiovascular: Regular rate and rhythm. Lungs: Grossly clear. Abdomen: Soft, nontender, nondistended. Extremities: Moves all extremities. Neurologic: Grossly intact. No focal deficits. Skin: No signs of jaundice. Vascular: All extremities perfused. LABORATORY STUDIES: Reviewed. IMAGING STUDIES: Reviewed, and noted above. ASSESSMENT AND PLAN: A 66-year-old male, with multiple recently diagnosed medical problems, tobacco abuse, and bilateral carotid disease. 1. Multiple medical problems. At this time, has been diagnosed by the hospitalist with multiple medical problems. He is to have these controlled. He is currently having his heart evaluated by Cardiology. There is potential for a stress test soon. I will follow up with the results of that. That would need to be addressed and controlled before any kind of consideration of surgical intervention. 2. Tobacco abuse has been addressed with the Hospitalist service. 3. Bilateral carotid disease. At this time, he has a completely occluded right internal carotid artery, which there is no operative intervention for. On the left side, he is likely around 60% stenosis. He may need to have consideration for carotid endarterectomy in the near future. I could see the patient in the office in followup, but he will need to have cardiac risk stratification prior to any kind of surgical intervention, and his medical disease better controlled before we consider surgical intervention. Again, I am more than happy to see the patient in followup as an outpatient in my office. cc: Ozzy Newman MD
[2017-06-18] MEDS: HUMULIN R SUBQ SCH ×4 (06:48→22:33)
[2017-06-18] MEDS: ASPIRIN PO SCH (09:13)
[2017-06-18] MEDS: PRINIVIL PO SCH (09:13)
[2017-06-18] MEDS: HYGROTON PO SCH (09:13)
[2017-06-18] MEDS: NORVASC PO SCH ×2 (09:13→23:25)
[2017-06-18] MEDS ORDERED: LEXISCAN ONE (09:48)
--- NOTE | 2017-06-18 17:57 | PROGRESS NOTE ---
DATE: 06/18/2017 SUBJECTIVE: Today Mr. Chase referred to be doing fine. Unfortunately, he had a scheduled stress test, but he ate this morning, so it did have to be postponed until tomorrow morning. OBJECTIVE: Vital signs: Blood pressure is 190/75, pulse of 59, respirations 18, temperature is 98.1 degrees. General: Mr. Chase is a 66-year-old male. He is in bed. He is not in any distress. HEENT: Mucosa is pink and moist. Anicteric. Acyanotic. Neck: Supple. Chest: Good air entry bilaterally. No crepitations. No rhonchi. Cardiovascular: Regular rate and rhythm. There are occasional extrasystolic beats. Abdomen: Soft, nontender. Extremities: No pedal edema. MANDARIN TEACHER: Patient is awake and alert. No focal neurological deficit. LABORATORY DATA: Glucose is 168. ASSESSMENT: 1. Recurrent syncopal episodes at home. There is a suspicion that patient could potentially have an underlying cardiac arrhythmia. We will continue to monitor his heart on front desk monitor. Cardiology is involved and I think the patient will need long-term cardiac monitoring, at least 30-day cardiac monitoring to see if we can capture any abnormal arrhythmia that could potentially be causing the syncopes. 2. Severe, uncontrolled hypertension on presentation. The patient has been started on medication and he seems to be doing a lot better. Blood pressure was a little bit high this morning because these were withheld with the thought that he was going to go for the stress test. 3. Tobacco abuse. Patient has been counseled. 4. Bilateral carotid artery disease. The right completely occluded, the left has a 60-70% occlusion. Patient has been seen by Vascular Surgery and there is a plan to follow him on outpatient basis. 5. 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 Noted. We are going to continue to treat aggressively the blood pressure. 6. Clinical dehydration. Improved. 7. Diabetes. Mellitus stable. PLAN: In general, I think Mr. Chase is stable. He came in initially because of syncopal episode. Workup revealed that he had long-standing uncontrolled hypertension which we addressed. We had to stop his carvedilol morning because he has bradycardic asymptomatic bradycardia on this medication and we are pending his stress test and will go from there. If patient's stress test is normal. I think it will be reasonable to discharge. Continue with his blood pressure medications and possibly have a cardiac monitoring device for at least 30 days on an outpatient basis and follow up with both Cardiology and Vascular Surgery. cc: Tonio Bradshaw MD
[2017-06-18] MEDS: LOVENOX SUBQ SCH (23:25)
[2017-06-18] MEDS: LIPITOR PO SCH (23:25)
[2017-06-19 05:54] LABS: MANUAL DIFF NEEDED? NO
[2017-06-19 05:59] LABS: BASO% 0.6 % (0.0-0.8); EOS# 0.42 X1000 (0.0-0.7); EOS% 3.9 % (0.0-10.0); HEMATOCRIT 42.3 % (42.0-52.0); HEMOGLOBIN 14.8 g/dL (14.0-18.0); IMM GRAN# 0.02 X1000 (0.0-0.04); IMM GRAN% 0.2 % (0.0-0.5); LYMPH# 2.77 X1000 (1.2-3.4); LYMPH% 25.6 % (20.5-51.1); MCH 31.2 PG (27-31); MCV 89.2 FL (81-99); MONO# 1.16 X1000 (0.11-0.59); MONO% 10.7 % (1.7-9.3); MPV 11.4 FL (7.4-10.4); PLT 292 X1000 (130-400); RBC 4.74 XMIL (4.7-6.1)
[2017-06-19 06:21] LABS: AGAP 14; BUN 14 mg/dL (8-22); CALCIUM 9.4 mg/dL (8.8-10.2); CHLORIDE 101 mmol/L (98-107); COSMO 281; POTASSIUM 3.4 mmol/L (3.5-5.1); SODIUM 140 mmol/L (136-145); TCO2 25 mmol/L (25-35)
[2017-06-19] MEDS: HUMULIN R SUBQ SCH ×4 (07:18→21:11)
[2017-06-19] MEDS ORDERED: LEXISCAN ONE (07:49)
[2017-06-19] MEDS: POTASSIUM CHLORIDE 20 MEQ/SWI 20 MEQ/100 ML IVPB IV SCH ×3 (11:32→17:39)
[2017-06-19] MEDS ORDERED: NS 500 ML ONE (11:38)
[2017-06-19] MEDS: ASPIRIN PO SCH (13:28)
[2017-06-19] MEDS: PRINIVIL PO SCH (13:29)
[2017-06-19] MEDS: NORVASC PO SCH ×2 (13:29→21:14)
[2017-06-19] MEDS: HYGROTON PO SCH (13:29)
[2017-06-19] MEDS: BIDIL PO SCH ×3 (13:30→16:13)
--- NOTE | 2017-06-19 14:47 | Diag Imaging Result Document ---
PROCEDURE NAME: MYOCARDIAL PERF SCAN, STR/REST - 06/15/2017 INDICATION: Syncope. PROCEDURES PERFORMED: 1. Lexiscan stress. 2. Two-day stress/rest myocardial perfusion imaging. PROCEDURE IN DETAIL: Mr. Chase was brought to the nuclear laboratory and had a resting study with injection of 31.7 mCi of technetium-99m sestamibi with the usual imaging protocol utilized. Subsequently, he was brought back on the - and had a Lexiscan stress. At peak stress, was injected with 31.2 mCi of technetium-99m sestamibi with the usual imaging protocol utilized. FINDINGS: LEXISCAN STRESS RESULTS: 1. Baseline EKG shows sinus rhythm with a PVC. 2. Lexiscan stress did not demonstrate any clear evidence of ischemic-related EKG changes. Occasional PACs and PVCs were noted throughout the duration of the study. Otherwise, no significant arrhythmias were identified. PERFUSION IMAGING RESULTS: 1. No evidence of abnormal extracardiac uptake. 2. TID ratio is 1.01. 3. Perfusion imaging demonstrates a very small size, mild intensity, fixed defect located in the inferior apical. This could be soft tissue attenuation versus apical thinning artifact. There is no clear evidence of ischemic-related changes. 4. Borderline normal to normal LV function with a stress EF of 50, rest EF of 55. The end- diastolic volume was 144 on stress and systolic volume 72. No segmental abnormalities were noted. cc: Samir Morillo MD
[2017-06-19] MEDS: GLUCOPHAGE PO SCH (16:13)
--- NOTE | 2017-06-19 16:13 | PROGRESS NOTE ---
DATE: 06/19/2017 SUBJECTIVE: The patient is resting comfortably in bed. No acute events noted overnight. OBJECTIVE: Vital Signs: Temperature 98.6, blood pressure 134/76, heart rate 71, respirations 16, O2 saturations 96% on room air. General: This is an elderly male, lying in bed, in no acute distress. Head: Normocephalic, atraumatic. Heart: S1, S2 normal. Regular rate and rhythm. Lungs: Clear to auscultation bilaterally. No wheezing. No rales. No rhonchi. Abdomen: Positive bowel sounds. Soft, nontender, nondistended. Extremities: No edema. No cyanosis. No calf tenderness. Neurologic: The patient is alert and oriented x3. LABS: White blood cell count 10, hemoglobin 14, platelets 292. Sodium 140, potassium 3.4, BUN 14, creatinine 1, glucose 125. ASSESSMENT AND PLAN: 1. Syncope. Patient had a stress test today that was unremarkable. Will await further recommendations from the invertebrate paleontologist. 2. Bilateral carotid artery disease. The patient will follow up with Vascular Surgery as outpatient to discuss further treatment options. 3. Tobacco dependence. The patient was counseled about smoking cessation. 4. Hypertension. Continue on the current antihypertensive regimen. 5. Diabetes mellitus type 2. We will start the patient on metformin. Continue with sliding scale insulin while hospitalized. 6. Hypokalemia. Will replace the patient's potassium. 7. Deep vein thrombosis prophylaxis. Continue on Lovenox. DISPOSITION: We will plan to discharge the patient home tomorrow. cc: Viktoriya Carrillo MD
[2017-06-19] MEDS: LOVENOX SUBQ SCH (21:14)
[2017-06-19] MEDS: LIPITOR PO SCH (21:14)
[2017-06-20] MEDS: HUMULIN R SUBQ SCH ×2 (06:06→11:07)
[2017-06-20 06:31] LABS: AGAP 12; BUN 21 mg/dL (8-22); CALCIUM 9.3 mg/dL (8.8-10.2); CHLORIDE 100 mmol/L (98-107); COSMO 279; MAGNESIUM 1.8 mg/dL (1.5-2.7); POTASSIUM 3.4 mmol/L (3.5-5.1); SODIUM 138 mmol/L (136-145); TCO2 26 mmol/L (25-35)
[2017-06-20] MEDS ORDERED: KLOR-CON PO ONE (07:20)
[2017-06-20 08:19] VITALS: BP 143/61
[2017-06-20] MEDS: BIDIL PO SCH (08:56)
[2017-06-20] MEDS: ASPIRIN PO SCH (08:56)
[2017-06-20] MEDS: HYGROTON PO SCH (08:56)
[2017-06-20] MEDS: GLUCOPHAGE PO SCH (08:56)
[2017-06-20] MEDS: PRINIVIL PO SCH (08:57)
[2017-06-20] MEDS: NORVASC PO SCH (08:57)
--- NOTE | 2017-06-21 08:28 | DISCHARGE SUMMARY ---
ADMISSION DATE: 06/15/2017 DISCHARGE DATE: 06/20/2017 CONSULTATIONS: Dr. Ozzy Newman with general surgery. PERTINENT PROCEDURES: 1. Head CT showed no acute disease. 2. Echocardiogram showed an EF of 50%. 3. Carotid Dopplers showed likely a complete occlusion of the right internal carotid artery with severe stenosis of the left. Given these findings, I would recommend a CT angiogram to confirm the stenosis given the questionable occluded versus 99% on the right. There was an incidentally noted right thyroid nodule which I would recommend getting a dedicated thyroid ultrasound on. 4. Head and neck CT showed no occlusion, prominent stenosis or aneurysm in the [place], complete occlusion of the right internal carotid artery. 5. Lexiscan did not demonstrate any evidence of ischemic related EKG changes. Perfusion imaging demonstrated a very small size mild intensity fixed defect located in the inferior apical. DISCHARGE DIAGNOSES: 1. Syncope. 2. Bilateral carotid artery disease 3. Tobacco dependence. 4. Hypertension. 5. Diabetes mellitus type 2. 6. Hypokalemia 7. 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 Dehydration HOSPITAL COURSE: Mr. Chase is a 66-year-old male who denies any past medical problems. Presented to the ED, experiencing a near syncopal episode just prior to arrival. He was at the grocery store, became dizzy, and almost passed out. He said that over the past 6 months, he has had several syncopal episodes for which he became dizzy and passed out, and had fallen and hit his head, and injured himself previously. He reports that he did not present to a doctor or the ER for evaluation with previous episodes. No previous history known for CVA, seizures, or cardiac problems. He has not seen a doctor in 15 years. Upon evaluation in the ED, the CT of the head was negative for anything acute. 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 A chest x-ray was negative. EKG showed sinus rhythm with sinus arrhythmia and occasional PVCs. Cardiac enzymes were negative. Blood pressure upon arrival was 215/140. He was given 20 mg of labetalol in the ED. That did improve his blood pressure. He was admitted for a full cardiac workup. His echocardiogram showed an EF of 50% with no wall motion abnormalities. Carotid Doppler showed a likely complete occlusion of the right internal carotid artery with severe stenosis on the left. Given these findings , I recommended a CT angiography to confirm stenosis given the questionable occlusion versus 99% on the right. Incidentally noted was a right thyroid nodule which recommending getting a dedicated thyroid ultrasound on. Head and neck CT showed no occlusion, prominent stenosis, or aneurysm in the [place]. Complete occlusion of the right internal carotid artery. His perfusion scan was unremarkable. Cardiology as well as general surgery were consulted. No significant AV block has been diagnosed since his admission except for a possible Wenckebach but no higher degree of an AV block. He has been started on 3 different types of antihypertensive medications. He has been counseled daily on tobacco abuse and smoking cessation, and the means to quit. He was also started on aspirin and a statin due to his bilateral carotid artery disease. He has a completely occluded right internal carotid artery. There is no operative intervention for that. On the left side, is likely around 60% stenosis. He may need to have a carotid endarterectomy in the near future. He needs to have a cardiac risk stratification prior to any kind of surgical intervention and his medical diseases need to be better controlled before they consider surgical intervention. Again, Dr. Newman will be happy for him to follow up as an outpatient in the office. Mr. Chase was also found to be a diabetic with a hemoglobin A1c of 6.6. He has been started on p.o. metformin. He is clinically stable at discharge. Follow up with Dr. Morillo as well as Dr. Newman. VITAL SIGNS: Temperature is 97.9 degrees, heart rate 53, respirations 16, blood pressure 143/61, O2 is 98% on room air. DISCHARGE DIET: Healthy heart. DISCHARGE MEDICATIONS: 1. Norvasc 5 mg p.o. b.i.d. 2. Aspirin 325 mg p.o. daily. 3. Lipitor 40 mg p.o. at bedtime. 4. [place]groton 12.5 mg p.o. daily. 5. Bidil 1 tab p.o. t.i.d. 6. Prinivil 20 mg p.o. daily. 7. Glucophage 500 mg p.o. b.i.d. FOLLOWUP: Mr. Chase is being discharged home. He will need to follow up with Dr. Samir Morillo in 3-4 weeks as well as Dr. Ozzy Figh as an outpatient. He has been advised about smoking cessation as well as the means to quit. He is to take all his new medications as prescribed. He will need to follow up with a primary care physician to the list that has been provided to him. He is also being given information on community resources and he does have medication coverage. He can return to the ED for any worsening of symptoms. Dictated by SILVINA Shah for Viktoriya Carrillo MD cc: Viktoriya Carrillo MD MTDD
== END 2017-06-20 13:29 | disposition home or self-care (01) ==
LOC: EDSEX → ED 12:22 → 4N 21:19 → SUATTDRO 21:19
PROVIDERS: ATTEND Internal Medicine